=== PATIENT | male | born 1965 | race Caucasian/White ===

== ENCOUNTER 2016-07-22 17:46 | Emergency (ER) | payer MEDICAID ==
[~2016-07-22 17:46] MED LIST: BENAZEPRIL-HCT1 EACH PO; CERTAVITE SR-A1 EACH PO; CIALIS20 MG PO; DIVALPROEX SOD250 M1 PO; HUMALOG100 UNIT/1 SQ; HYDROCODON-ACE1 EAC6 PO; ISOSORBIDE MONO30 MG PO; LANTUS100 UNITS/ SQ; LIPITOR80 MG PO; LYRICA200 MG PO; NIASPAN500 MG PO; NITROSTAT0.4 MG SL; PAROXETINE HCL20 MG PO; PROVENTIL HFA6.7 GM IH; SLO NIACIN DPS500 MG PO; TRICOR145 MG PO; TYLENOL325 MG PO; VERAPAMIL ER240 M1 PO; VITAMIN D50000 UNIT PO; ZANTAC150 MG PO
--- NOTE | 2016-07-31 18:52 | ER ---
ADMIT: 07/22/2016 RM/LOC: ER [facility] MR#: [id number] [address] [address] ZAINA AGGARWAL [address] [place] [id number] Emergency Room Report SEX: M AGE: 50 : 1965 DATE: 07/22/2016 ADDENDUM: HISTORY OF PRESENT ILLNESS: This patient comes into the ER because early this evening, he started to feel dizzy and weak. He vomited 2 times, has had no diarrhea. He is coughing. Before, he was able to eat and drink normally. He is an insulin-dependent diabetic. PHYSICAL EXAMINATION: GENERAL: He is alert and oriented. HEENT: Posterior pharynx is dry. ABDOMEN: Soft, nontender to palpation. IV of normal saline was started. He was given a liter of bolus. He complains a lot of dizziness. He was given Valium 2 mg IV. He had no serum ketones in his blood and no ketones in his urine. Cardiac enzymes and CMP and lipase were normal. Chest x-ray also was negative. DIAGNOSES: 1. Dizziness. 2. Vomiting. 3. Weakness. Once the patient got fluids, we had him get up and walk around, he was able to without any difficulty and was quite improved. He is to follow up with his doctor tomorrow if not keeping fluids down. Please see my T-sheet. JULIO CESAR Castellanos / Rick Perera MD / roberto JOB #: [id number] CC: Rangel Mora MD, Attending Physician Dasha Johnson MD, Family Physician
[2016-08-22] MEDS ORDERED: GLUCOTROL DPS5 MG PO (11:36)
[2016-08-22] MEDS ORDERED: LANTUS100 UNITS/ SQ (11:37)
[2016-08-22] MEDS ORDERED: CYMBALTA30 MG PO ×2 (11:37)
[2016-08-22] MEDS ORDERED: VANCOMYCIN1 DOSE IV (11:38)
[2016-08-22] MEDS ORDERED: XANAX DPS1 MG PO (11:39)
[2016-08-22] MEDS ORDERED: AMBIEN DPS10 MG PO (11:40)
[2016-08-22] MEDS ORDERED: JANUVIA100 MG PO (11:41)
[2016-08-22] MEDS ORDERED: ASPIRIN EC81 MG PO (11:42)
[2016-08-22] MEDS ORDERED: PRILOSEC DPS20 MG PO (11:42)
[2016-12-02] MEDS ORDERED: PROAIR RESPICL90 MCG IH (08:45)
[2016-12-02] MEDS ORDERED: LEVAQUIN DPS500 MG PO (08:48)
== END 2016-07-22 21:45 | disposition home or self-care (01) ==
LOC: ER 17:46
DX: R42 Dizziness and giddiness (principal); R11.10 Vomiting, unspecified; R53.1 Weakness; I10 Essential (primary) hypertension; E11.9 Type 2 diabetes mellitus without complications; Z79.82 Long term (current) use of aspirin; Z79.4 Long term (current) use of insulin

== ENCOUNTER 2016-08-15 14:29 | Inpatient (IN) | payer MEDICAID ==
[~2016-08-15] VITALS: Ht 180.3 cm; Wt 126.4 kg
--- NOTE | ~2016-08-15 | WND ---
ADMIT: 08/15/2016 RM/LOC: 620 [facility] MR#: [id number] [address] [address] ED AGGARWAL [address] [place] [address] Wound Care Clinic SEX: M AGE: 50 : 1965 DATE OF VISIT: 08/18/2016 REASON FOR VISIT: Left toe ulcer. HISTORY OF PRESENT ILLNESS: Ed was seen in outpatient wound clinic on August 15, 2016 by myself for diabetic neuropathic ulcer to his left great toe. It was noted at that appointment that he had significant erythema and odor. He was also seen on August 13, 2016, at which time, I felt it would be appropriate to admit him for IV antibiotics. However, he did not want to go into the hospital, so I told him we would start with Augmentin and bring him back in 2 days and re-evaluate him. The 2-day followup was August 15. He had significant odor, increased drainage, and redness at which time, he was sent to the emergency room. He was admitted from the emergency room to the hospital on August 15, 2016. Staff has been doing Dakin's moistened gauze to the wound bed. He was recently seen by Dr. Ragsdale today. He is going to be taken to surgery tomorrow, August 19, 2016, by Dr. Ragsdale for incision and drainage of the wound with possible left great toe amputation. Ed is happy to tell me that his blood sugars many have been less than 100. He reports that he is feeling significantly better and is anxious to go home. He had an MRI of his left great toe yesterday; however, I am unable to pull up the results. PAST MEDICAL HISTORY: 1. Bipolar disorder, affective, current episode depressed, moderate. 2. Diabetes mellitus type 2. 3. Peripheral neuropathy. 4. Esophageal reflux without esophagitis. 5. Essential hypertension. 6. Hyperlipidemia. 7. Insomnia related to known axis factor. 8. Male erectile dysfunction due to disease classified elsewhere. 9. Multivessel coronary artery disease. 10.Renal insufficiency. 11.Chronic kidney disease, stage 3. ALLERGIES: No known medication allergies. CURRENT MEDICATIONS: 1. Alprazolam. 2. Aspirin. 3. Benazepril/hydrochlorothiazide. 4. Cymbalta. 5. Divalproex. 6. Glipizide. 7. Humalog. 8. Hydrocodone. 9. Acetaminophen 10/325. 10.Imdur. 11.Januvia. 12.Lantus. ADMIT: 08/15/2016 RM/LOC: 620 [facility] MR#: [id number] [address] [address] ED AGGARWAL [facility] [place] [address] Wound Care Clinic SEX: M AGE: 50 : 1965 13.Lipitor. 14.Lyrica. 15.Niaspan. 16.Nitrostat. 17.Prilosec. 18.Tricor. 19.Viagra. 20.Vitamin D. 21.Zolpidem. FAMILY HISTORY: His dad 50 years old of heart attack. His mother at 52 years old from bone cancer. He has a daughter with one of his 4 previous wives, who has diabetes. He has 2 sons and 1 other daughter. SOCIAL HISTORY: He is 4 times. He is currently living with his girlfriend for the past 10 years. Occupation; he delivers newspapers. He denies any tobacco, alcohol, or illicit drug use. 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 He has done time in [facility]. OBJECTIVE: Assessment of the left great toe reveals significantly improved erythema and less drainage. The plantar wound measures 0.6 cm in length x 0.6 cm in width. Wound bed is 100% pink. The lateral surface of the left great toe has a full-thickness wound that measures 0.5 cm in length x 0.8 cm in width. The wound bed is 100% yellow. ASSESSMENT: Diabetic neuropathic ulcer to the left great toe. PLAN: Staff will continue with the Dakin's moistened gauze to the wound bed and change daily until further directions are given to them status post incision and drainage by Dr. Gross on 08/19/2016. Wound Care will continue to follow. Yesica Hyman APRN/ roberto JOB #: [id number] CC: Dasha Johnson, Attending Physician aDsha Johnson, Family Physician
--- NOTE | 2016-08-18 07:52 | HP ---
ADMIT: 08/15/2016 RM/LOC: 620 [facility] MR#: [id number] ACC#: [id number] [address] [address] ED AGGARWAL [address] [place] [address] History and Physical SEX: M AGE: 50 : 1965 DATE OF SERVICE: CHIEF COMPLAINT: Pain in left foot. HISTORY OF PRESENT ILLNESS: Ed is a 50-year-old male with diabetes mellitus type 2. He was cared for in our office by Dr. Dasha Johnson. However, he has been having a problem with a sore on his left great toe, which did not heal for the last 2 months. He has been going to Wound Care, getting regular treatment. He has been on outpatient oral antibiotics. I believe, he has been on Keflex, Septra, and now is on Augmentin. Despite this treatment, he continues to have increasing swelling and discharge from his left great toe from the ulcers. He was seen in Wound Care today and they had recommended admission to the hospital for surgery and debridement. I asked them to send Ed over to the office, which they did do and Ed decide to come to the emergency room and stayed at the office. On evaluation in the emergency room, he has some cellulitis of his left great toe. Sepsis workup there was negative, but due to the degree of infection and not responding to oral antibiotics, we will go ahead and admit him to the hospital at this time for Surgical consult, prior needs some debridement. There was concern for possible osteomyelitis and need to amputate the toe and possibly the foot. We will get a podiatry consult. He does have diabetes mellitus type 2. He does not check his sugars regularly. When he does, they had been 250 to 350. He says he is not certain why sugars so high that he has not been eating anything. Denies any fever, chills, or sweats at home. No other symptoms other than the left great toe being painful and increased redness and tenderness this morning. PAST MEDICAL HISTORY: Diabetes mellitus type 2, insulin dependent, poorly controlled. He has nonobstructive coronary artery disease, on heart catheterization in 2012. Had a distal RCA lesion of 70%. Additionally, he has hypertension, hyperlipidemia, chronic kidney disease, chronic pain, and depression. ALLERGIES: NONE KNOWN. MEDICATIONS: Currently takes: 1. Lyrica 200 mg t.i.d. 2. Ambien 10 mg at bedtime. 3. Xanax 1 mg t.i.d. p.r.n. 4. Lantus 80 units subcu b.i.d. 5. Januvia 100 mg p.o. daily. 6. Lortab 10/325 one and a half tablet every 5 to 6 hours as needed for pain. 7. Recently on Augmentin 875/125 one tab b.i.d. with food. SOCIAL HISTORY: Significant other is present with him. They have been dating for several years. He is former smoker, quit in 2002. Denies any current ADMIT: 08/15/2016 RM/LOC: 620 [facility] MR#: [id number] [address] [place] [id number] ED AGGARWAL [facility] [place] [address] History and Physical SEX: M AGE: 50 : 1965 drug or alcohol use. He does have a prior history of drug abuse and alcohol abuse. FAMILY HISTORY: Father had heart attack in his 50s. Mother had heart attack at an older age, otherwise family history is noncontributory. REVIEW OF SYSTEMS: GENERAL: He states he has been doing well other than the foot problem. He does not check his sugars regularly. He denies any chest pain, pulmonary symptoms, or GI symptoms. He does have chronic osteoarthritis and chronic back pain. Looking back through his records, he had ulcerations on the same toe in 2014. PHYSICAL EXAMINATION: GENERAL: A 50-year-old male, appears older than stated age. He is alert and oriented x3. VITAL SIGNS: In the emergency room were stable. BP is 145/85, pulse 102, respiratory rate 17, O2 saturation 96% on room air, and temp is 98.2. HEENT: Eyes, PERRLA. EOMs intact. TMs not seen. Throat is moist, not inflamed. NECK: Supple. LUNGS: Clear to auscultation anteriorly. Respirations not labored. HEART: Regular rate. No murmur heard. ABDOMEN: Obese. No organomegaly or tenderness. /RECTAL: Deferred. EXTREMITIES: Has trace of edema in the lower extremities. Decreased peripheral pulses. The left great toe was erythematous with 2 ulcerations each about 0.75 cm in diameter and very deep all the way down into the subcutaneous tissue. The bridge between the two ulcerations is very necrotic. The redness and cellulitis extending up into the instep with some lymphangitic streaking. DIAGNOSTIC IMPRESSION: 1. Diabetic neuropathic foot with neuropathic ulcer with secondary gangrene ADMIT: 08/15/2016 RM/LOC: 620 [facility] MR#: [id number] [address] [place] [id number] ED AGGARWAL [address] [place] [address] History and Physical SEX: M AGE: 50 : 1965 and cellulitis, rule out osteomyelitis. 2. Diabetes mellitus type 2. 3. Morbid obesity. 4. Hypertension. 5. Coronary artery disease. 6. Chronic kidney disease. PLAN: The patient will be admitted to the hospital. Cultures have been obtained. Start him on IV Zosyn and vancomycin, which we will continue. Place him on sliding scale insulin. Continue with his home medications except hold the oral medications. We will obtain a Surgical consult with Dr. Ragsdale, order desk caller. Karlo Moody MD/ roberto JOB #: [id number] CC: Dasha Johnson, Attending Physician Dasha Johnson, Family Physician
--- NOTE | 2016-08-19 16:37 | CO ---
ADMIT: 08/15/2016 RM/LOC: 620 [facility] MR#: [id number] [address] [address] ZAINA AGGARWAL [address] [place] [address] Consultation SEX: M AGE: 50 : 1965 DATE OF CONSULTATION: 08/16/2016 ATTENDING PHYSICIAN: Dasha Johnson CONSULTING PHYSICIAN: Lee Ragsdale DPM CHIEF COMPLAINT: Left foot ulceration. HISTORY OF PRESENT ILLNESS: This patient is a 50-year-old poorly controlled diabetic male here today as an inpatient for cellulitis and ulceration of the left 1st digit. The patient describes having an ulceration for approximately 2 to 2-1/2 months after a callus and blister formed on the plantar surface of the digit. The patient has been seeing Wound Care and has had progressive worsening of the ulceration and was admitted through the emergency department. The patient has had increased swelling, redness, discharge, and pain at the left 1st digit. The patient also complains of constipation, but denies any nausea, vomiting, fever, or chills. PAST MEDICAL HISTORY: Diabetes type 2, coronary artery disease, hypertension, hyperlipidemia, chronic kidney disease, and depression. PAST SURGICAL HISTORY: Cardiac cath. ALLERGIES: NO KNOWN DRUG ALLERGIES. MEDICATIONS: Please see the list for current medications. FAMILY HISTORY: Noncontributory. SOCIAL HISTORY: Past drug and alcohol abuse. Former smoker. REVIEW OF SYSTEMS: Constipation. Negative for nausea or vomiting or fever or chills. PHYSICAL EXAMINATION: VITAL SIGNS: Temp 98.4, pulse is 112, respirations 21, blood pressure 122/65, and O2 is 92% on room air. PHYSICAL EXAMINATION: VASCULAR: DP and PT pulses are difficult to palpate. Edema is noted bilaterally, but is nonpitting. The patient does have left calf pain with palpation. Capillary refill time is approximately 4 to 5 seconds bilaterally. Absent hair growth to the digits bilaterally. NEUROLOGIC: Light touch sensation is absent to the feet bilaterally. DERMATOLOGIC: The patient has ulcerations of the left 1st digit at the interphalangeal joint plantarly measured 0.7 x 0.6 and has significant depth, which probes to the flexor tendon. The medial aspect measures 1.0 x 0.9 x 0.8 cm and has significant fibrotic tissue, serous drainage and does probe to bone. The ulcerations are not directly connected, but the tissue is quite soft in nature and would likely connective. Debridement was performed. The patient has erythema, which extends to the metatarsal neck of the 1st, 2nd, ADMIT: 08/15/2016 RM/LOC: 620 [facility] MR#: [id number] [address] [place] [phone] ZAINA AGGARW[place] [address] Consultation SEX: M AGE: 50 : 1965 and 3rd ray on the left. With increased warmth and swelling noted, no fluctuance identified, no direct sinus tract from the ulcerations. MUSCULOSKELETAL: Contracture digits bilaterally. Pain on palpation of the left calf and 1st digit on the left. No other acute musculoskeletal concerns noted today. LABORATORY DATA: Sodium 141, potassium 3.5, BUN is 16, and creatinine is 1.3. White count is 10, hemoglobin 13.9, hematocrit 40.5, and platelets 214. Procalcitonin is 0.37. Lactic acid is 1.0. Culture is mixed. RADIOLOGY: X-ray shows no definitive change within the bony cortex of the left first digit, but soft tissue edema is noted. ASSESSMENT: 1. Cellulitis. 2. Osteomyelitis. 3. Left foot ulceration. 4. Diabetes. 5. Peripheral vascular disease. 6. Peripheral neuropathy. PLAN: We will do some preoperative workup for this patient including an MRI to determine extent of the infection and any presence of an abscess or other concern. We will also obtain vascular studies to determine if there is any impediment in blood flow to the left extremity, which would change the surgical decision-making and also to help determine the patient's ability to heal. We will also obtain a venous ultrasound of the left leg to screen for DVT as he does have some left calf pain. For now, we will use Dakin's in a wet-to-dry manner to help control bacterial burden, this can be changed daily or as needed. The patient is to wear a supportive shoe or surgical shoe and avoid walking barefoot. We will consult secondary social studies teacher to help with discharge planning and nutritional services for diabetic education and recommendations for protein supplementation. We will continue to follow this patient until the studies are performed, and we will create a definitive plan with these. We will plan to take the patient to the operating room Thursday or Thursday for possible debridement versus amputation. The patient was educated about the possible diagnosis and treatment as well as a possible loss of the digit or part of the foot. His questions were answered in detail. We will discuss this with him further before surgery is planned. Lee Ragsdale DPM/ roberto JOB #: [id number] CC: Dasha Johnson, Attending Physician Dasha Johnson, Family Physician
--- NOTE | 2016-08-21 08:44 | ER ---
ADMIT: 08/15/2016 RM/LOC: 620 [facility] MR#: [id number] [address] [address] ZAINA AGGARWAL [address] [place] [address] Emergency Room Report SEX: M AGE: 50 : 1965 DATE: 08/15/2016 TIME: 1429 hours. Please refer to my T-sheet for complete H and P. Briefly, the patient is a 50-year-old who has the unfortunate history of left great toe ulcer. They have been working to wound care. He has been on long antibiotics, been there long-standing, but it is getting worse, not getting better. Wound Care sent him over for evaluation. He does not control his sugars very well. He says he has been having the chills. PHYSICAL EXAMINATION: VITAL SIGNS: His blood pressure is 140/85, pulse 103, respirations 18, temp 98.8, and sat 95%. GENERAL: He is no acute distress. HEENT: Grossly normal. LUNGS: Clear. HEART: Regular. ABDOMEN: Soft. EXTREMITIES: Left great toe has some large ulcers on the bottom of it. He had erythema and redness up to his mid foot. It is tender and swollen. EMERGENCY DEPARTMENT COURSE: We did a sepsis workup here. CBC was essentially normal. Chemistries normal except glucose 346 and creatinine 1.6. Cardiac enzymes negative. UA showed 4+ glucose. Blood cultures x2 were sent. His lactate was 1. We gave him normal saline bolus, Zofran. Titrated morphine. Started vancomycin and Zosyn. I talked to his primary, will admit to the hospital. ASSESSMENT: 1. Left foot great toe diabetic ulcer. 2. Left foot cellulitis, failed outpatient therapy. 3. Diabetes, poorly controlled. PLAN: Admit to the hospital. Josh Ricketts MD/ roberto JORDAN: 08/15/2016 16:32:13 JOB #: [id number] CC: Dasha Johnson MD, Attending Physician Dasha Johnson MD, Family Physician
--- NOTE | 2016-08-22 06:44 | DS ---
ADMIT: 08/15/2016 RM/LOC: 620 [facility] MR#: [id number] [address] [address] JASEN EBONYSONJA Valles [address] [place] [address] Discharge Summary SEX: M AGE: 50 : 1965 ADMISSION DATE: 08/15/2016 DISCHARGE DATE: 08/21/2016 FINAL DIAGNOSES: 1. Diabetic foot ulcer with osteomyelitis in the left great toe. 2. Type 2 diabetes, uncontrolled. 3. Diabetic peripheral neuropathy. 4. Hypertension. 5. Hyperlipidemia. 6. Diabetic neuropathic pain. HISTORY: Ed was admitted with worsening cellulitis and had evaluation by Podiatry including MRI scan, which confirmed osteomyelitis around the first digit of the left foot. He had arterial vascular studies, which showed no significant obstruction. Dr. Ragsdale performed left great toe amputation on 08/19/2016. The patient did very well with surgery. Blood cultures were negative during the hospital stay. Wound cultures showed multiple mixed gram-positive organisms and there were also some anaerobes growing, but have not been completely identified. Laboratory states with the mixed organism in the field that sensitivities cannot be performed. In any case, by 08/21/2016, he is getting along well with minimal pain at rest. He knows that he cannot be weightbearing on the left foot. He has been using a walker and has been getting up to the bathroom on his own. He will go home where his significant other, Veronica, will ensure that he gets back and forth to the hospital for IV antibiotic treatments. We spent time going over blood sugars and appropriate diet. He freely admits that he was not watching what he ate at home whatsoever. He said he was eating large amounts of things like tortillas and cornbread at home. Ed has limited finances and limited access to different foods, but both he and his significant other said they can "make things work." He is going to stop drinking soda and he was drinking anywhere from 12-24 cans per day so can shift that money to buy better food, which we talked about at length. Medicines on dismissal are: 1. Ambien 10 mg at bedtime. 2. Aspirin 81 mg daily. 3. Cymbalta 60 mg in the morning and 30 mg at night. 4. Glucotrol 5 mg t.i.d. 5. Januvia 100 mg daily. 6. Lipitor 40 mg at bedtime. 7. Lotensin 01/22.5, one daily. 8. Lyrica 200 mg t.i.d. 9. Omeprazole 40 mg daily. 10.TriCor 145 mg daily. 11.Vitamin D 50,000 units weekly. ADMIT: 08/15/2016 RM/LOC: 620 [facility] MR#: [id number] [address] [address] ZAINA AGGARWAL [facility] [place] [address] Discharge Summary SEX: M AGE: 50 : 1965 12.He will use Lantus insulin 50 unit subq every morning and 70 units subq every evening, and I can adjust that with him depending on how his sugars do. 13.He will also use Humalog sliding scale according to the following regimen: If sugars are 150-200, he will use 2 units; if 201-250, he will use 4 units; if 251-300, he will use 6 units; if 301-350, he will use 8 units; and if over 350, he will use 10 units. He knows to drink no soda or other sugary drinks. 14.He will also need to come to the hospital for vancomycin 1.5 g IV q.12 hours for the next three to four weeks depending on his healing. We will place a midline IV prior to dismissal to facilitate that antibiotic. The patient voiced understanding and said he would be able to get back and forth. At home, he has a walker, shower chair, and also a scooter to get around and keep his foot off the ground and avoid weightbearing. Dasha Johnson MD/ marcia JOB #: [id number] CC: Dasha Johnson MD, Attending Physician Dasha Johnson MD, Family Physician
[2016-08-22] MEDS ORDERED: GLUCOTROL DPS5 MG PO (11:36)
[2016-08-22] MEDS ORDERED: CYMBALTA30 MG PO ×2 (11:37)
[2016-08-22] MEDS ORDERED: LANTUS100 UNITS/ SQ (11:37)
[2016-08-22] MEDS ORDERED: VANCOMYCIN1 DOSE IV (11:38)
[2016-08-22] MEDS ORDERED: XANAX DPS1 MG PO (11:39)
[2016-08-22] MEDS ORDERED: AMBIEN DPS10 MG PO (11:40)
[2016-08-22] MEDS ORDERED: JANUVIA100 MG PO (11:41)
[2016-08-22] MEDS ORDERED: PRILOSEC DPS20 MG PO (11:42)
[2016-08-22] MEDS ORDERED: ASPIRIN EC81 MG PO (11:42)
--- NOTE | 2016-08-29 11:55 | OR ---
ADMIT: 08/15/2016 RM/LOC: 620 [facility] MR#: [id number] [address] [address] EBONY AGGARWALSONJA Hai [address] [place] [address] Operative/Delivery Room Report SEX: M AGE: 50 : 1965 SURGERY DATE: 08/19/2016 SURGEON: Lee Ragsdale DPM ORTHOPAEDIC NURSE: None. PREOPERATIVE DIAGNOSIS: Osteomyelitis, left foot, 1st digit. POSTOPERATIVE DIAGNOSIS: Osteomyelitis, left foot, 1st digit. PROCEDURE: Amputation, left foot, 1st digit. ANESTHESIA: MAC with local. COMPLICATIONS: None. SPECIMENS: Toe for culture and pathology. ESTIMATED BLOOD LOSS: Less than 5 mL. FLUID REPLACEMENT: As per Anesthesia. HEMOSTASIS: Pneumatic ankle tourniquet at 250 mmHg. INJECTIONS: 10 mL of 2% lidocaine plain. MATERIALS: 4-0 Vicryl, 2-0 nylon. PREOPERATIVE STATEMENT: This patient was recently admitted for ulceration, cellulitis, and osteomyelitis of the left foot 1st digit. The patient has been started on IV antibiotics, and an MRI confirmed the presence of osteomyelitis. It was determined at this time that surgical intervention was necessary to reduce the risk of overwhelming infection and further loss of limb or life. The patient was seen in the preoperative area. The consent was reviewed with the patient including the risks and benefits of the procedure. The patient's questions were answered in detail, and the consent was noted to be signed and placed on the chart. The H and P is up-to-date. The labs, EKGs, and x-rays were reviewed, and there were no contraindications to surgery at this time. OPERATIVE REPORT: This patient was brought back to the operating room under light sedation, placed on operating table in the supine position. A well- padded ankle tourniquet was placed about the patient's left ankle. The time- out was performed. The site marking was noted when all in agreement. The foot was prepped and draped in a normal aseptic technique and the procedure was underway. Using a tennis racket style incision over the dorsal aspect of the 1st digit of the left foot, the skin was incised and dissection was carried down to the ADMIT: 08/15/2016 RM/LOC: 620 [facility] MR#: [id number] [address] [address] ZAINA AGGARWAL [address] [place] [address] Operative/Delivery Room Report SEX: M AGE: 50 : 1965 level of the 1st metatarsophalangeal joint. Once at this level, the joint was exposed with incision of the joint capsule. The digit was then disarticulated from the 1st metatarsophalangeal joint and the remaining soft tissue attachments were removed. MRI did not show sign of infection within the sesamoid apparatus and this was left intact. The site was then irrigated with 3 L of saline and bacitracin using a pulse lavage. After irrigation, the site was inspected for any remaining nonviable tissue, and there was noted to be none. The areas of ulceration were excised from the remaining flap. After excision, the flap was contoured and shaped to allow closure, which was somewhat difficult at the medial aspect due to soft tissue loss. Once the soft tissue was reapproximated, the dressing was applied using a Xeroform gauze with an Wing wrap. The patient was transferred to the recovery room with his vital signs stable and neurovascularly intact. The patient is to be nonweightbearing on the left foot. He is to continue to receive IV antibiotics. We will hopefully pre-certify him for hyperbarics after his discharge. We will continue to see him as an inpatient, will likely be discharged on IV antibiotics for 2 to 4 weeks. Lee Ragsdale DPM/ roberto JOB #: [id number] CC: Dasha Johnson, Attending Physician Dasha Johnson, Family Physician
[2016-12-02] MEDS ORDERED: PROAIR RESPICL90 MCG IH (08:45)
[2016-12-02] MEDS ORDERED: LEVAQUIN DPS500 MG PO (08:48)
== END 2016-08-21 20:35 | disposition home or self-care (01) | DRG 617 ==
LOC: ER 14:29 → 6PED 17:00
PROVIDERS: ADMIT Family Medicine
PROC: 0Y6Q0Z0 Detachment at Left 1st Toe, Complete, Open Approach (ICD-10-PCS; principal; 2016-08-19)
DX: E11.69 Type 2 diabetes mellitus with other specified complication (principal); M86.672 Other chronic osteomyelitis, left ankle and foot; E11.22 Type 2 diabetes mellitus with diabetic chronic kidney disease; L03.116 Cellulitis of left lower limb; E66.01 Morbid (severe) obesity due to excess calories; E11.65 Type 2 diabetes mellitus with hyperglycemia; L03.032 Cellulitis of left toe; I25.10 Atherosclerotic heart disease of native coronary artery without angina pectoris; M19.90 Unspecified osteoarthritis, unspecified site; E11.42 Type 2 diabetes mellitus with diabetic polyneuropathy; I73.9 Peripheral vascular disease, unspecified; I12.9 Hypertensive chronic kidney disease with stage 1 through stage 4 chronic kidney disease, or unspecified chronic kidney disease; N18.9 Chronic kidney disease, unspecified; E78.5 Hyperlipidemia, unspecified; G89.29 Other chronic pain; F32.9 Major depressive disorder, single episode, unspecified; Z79.4 Long term (current) use of insulin; Z82.49 Family history of ischemic heart disease and other diseases of the circulatory system; Z98.61 Coronary angioplasty status; Z87.891 Personal history of nicotine dependence; Z68.38 Body mass index [BMI] 38.0-38.9, adult

== ENCOUNTER 2016-09-16 17:08 | Emergency (ER) | payer MEDICAID ==
[~2016-09-16 17:08] MED LIST changes: +AMBIEN DPS10 MG PO; +ASPIRIN EC81 MG PO; +CYMBALTA30 MG PO; +GLUCOTROL DPS5 MG PO; +JANUVIA100 MG PO; +PRILOSEC DPS20 MG PO; +VANCOMYCIN1 DOSE IV; +XANAX DPS1 MG PO
--- NOTE | 2016-09-20 13:04 | ER ---
ADMIT: 09/16/2016 RM/LOC: ER [facility] MR#: [id number] [address] [address] ZAINA AGGARWAL [address] [place] [address] Emergency Room Report SEX: M AGE: 50 : 1965 DATE: 09/16/2016 CHIEF COMPLAINT: Abdominal pain. HISTORY OF PRESENT ILLNESS: A 50-year-old, white male, who presents with 2 days' duration of worsening abdominal pain and left lower leg pain. States he had his greater toe on the left foot amputated on August 19. This was performed by Dr. Ragsdale, community director. He encouraged them to present to the ED with any worsening pains up the leg or abdominal pain. Presents today with 9/10 stabbing periumbilical pain, nausea, and diarrhea. Denies any fever, chills, vomiting, or loss of appetite. The pain is worse with movement. He is currently receiving outpatient IV vancomycin for treatment of his lower extremity amputation. Denies any purulent drainage or concerning signs of infection about the amputation site. PAST MEDICAL HISTORY: Diabetes on insulin, hypertension, and chronic kidney disease. COURSE IN THE EMERGENCY ROOM: The patient was seen and examined. PHYSICAL EXAMINATION: GENERAL: He is afebrile and nontoxic. He is in a mild amount of distress. CHEST: Nontender. Breath sounds equal bilaterally. HEART: Regular. ABDOMEN: Soft. He does have periumbilical tenderness. No McBurney point tenderness. SKIN: Warm and dry. EXTREMITIES: He is status post amputation of the left great toe. There is no erythema, warmth, or drainage from the incision site. There is no streaking red up the leg. LABORATORY DATA: White count 6.8, hemoglobin 14.1, hematocrit 39.9, and platelets 213. Sodium 137, potassium 4.0, BUN 23, glucose 306, creatinine 1.7, lipase 226, AST 21, and ALT 34. KUB shows nonspecific gas pattern, no signs of acute obstruction. While in the department, I did give him Zofran 4 mg IV through his PICC line as well as Reglan 10 mg IV and Ativan 1. I did have a long discussion with them as they were concerned that there is a blister on his foot that was gangrenous. I reassured them that did not look ADMIT: 09/16/2016 RM/LOC: [facility] MR#: [id number] [address] [address] ZAINA AGGARWAL [address] [place] [address] Emergency Room Report SEX: M AGE: 50 : 1965 infected at this time. He states he is feeling better. IMPRESSION: 1. Abdominal pain. 2. Nausea, vomiting, and diarrhea. DISPOSITION: The patient was discharged home to increase fluids. Continue home medications. Return with worsening signs or symptoms. Tylenol as needed for pain. Return home and rest. He is scheduled to see Dr. Johnson tomorrow. I encouraged him to follow up with her as scheduled tomorrow. Questions sought and answered to the best of my ability and to the patient's satisfaction. Discharged in stable condition. JULIO CESAR Anthony / Rick Perera MD / roberto JOB #: [id number] CC: Niraj Weber MD, Attending Physician Dasha Johnson MD, Family Physician
[2016-12-02] MEDS ORDERED: PROAIR RESPICL90 MCG IH (08:45)
[2016-12-02] MEDS ORDERED: LEVAQUIN DPS500 MG PO (08:48)
== END 2016-09-16 20:15 | disposition home or self-care (01) ==
LOC: ER 17:08
DX: R10.84 Generalized abdominal pain (principal); R11.2 Nausea with vomiting, unspecified; R19.7 Diarrhea, unspecified; R10.33 Periumbilical pain; E11.9 Type 2 diabetes mellitus without complications; I12.9 Hypertensive chronic kidney disease with stage 1 through stage 4 chronic kidney disease, or unspecified chronic kidney disease; N18.9 Chronic kidney disease, unspecified; F32.9 Major depressive disorder, single episode, unspecified; Z89.412 Acquired absence of left great toe; Z79.4 Long term (current) use of insulin; Z79.84 Long term (current) use of oral hypoglycemic drugs; Z79.82 Long term (current) use of aspirin; Z79.899 Other long term (current) drug therapy

== ENCOUNTER 2016-09-17 09:33 | Observation (INO) | payer MEDICAID ==
[~2016-09-17] VITALS: Ht 180.3 cm; Wt 122.1 kg
--- NOTE | 2016-09-18 07:38 | HP ---
ADMIT: 09/17/2016 RM/LOC: 407 [facility] MR#: [id number] [address] [address] ZAINA AGGARWAL [address] [place], [place] [address] History and Physical SEX: M AGE: 50 : 1965 DATE OF SERVICE: CHIEF COMPLAINT: Stomach pain and vomiting with comorbidity of current osteomyelitis. HISTORY OF PRESENT ILLNESS: Ed was admitted to the hospital in August 2016 with osteomyelitis and eventually had amputation of the left great toe. Surgery was on August 19. He has been coming in for outpatient vancomycin IV antibiotic since that time, and his last scheduled dose is September 19. However on September 15, he started to feel nauseated and vomited. On the , he went to the emergency room and was given some IV fluids, Zofran, and Reglan, treated for presumed gastroenteritis. He said he felt better a few hours and then when he went home and tried to drink, he started vomiting again. He said today he cannot even keep water down. He is not aware of fevers, but says he feels chills and "terrible." He said he feels tired and nauseated. He has been taking his routine medicines including his insulin. Denies any hypoglycemia. He has poorly controlled diabetes type 2. PAST MEDICAL HISTORY: 1. Diabetes type 2 with poor control historically. 2. Nonobstructive coronary artery disease with known distal RCA lesion with last heart catheterization in 2012. 3. Hypertension. 4. Hyperlipidemia. 5. Chronic kidney disease, stage 3. 6. Chronic pain. 7. Diabetic neuropathy in the extremities. 8. Chronic depression. ALLERGIES: NONE KNOWN. SOCIAL HISTORY: Ed lives with his significant other, Veronica. He is a former smoker, about 40 pack-year history. He has a prior history of drug abuse and alcohol abuse, but has been sober for greater than 10 years. FAMILY HISTORY: His father had heart disease and heart attack in his 50s. He was also diabetic and has legs amputated. Mother had a heart attack when she was in her 60s. REVIEW OF SYSTEMS: GENERAL: He said he was feeling well until the last 48 hours when he started to have nausea and now feels very tired. Denies fever or chills, but has not been checking his temperature. ENT: He has partial dentures. Denies any sores in his mouth. Denies sore throat. No runny nose. CARDIOPULMONARY: Benign. He denies chest pain. No cough. No shortness of breath. GASTROINTESTINAL: Positive for vomiting. He denies any hematemesis. Also, ADMIT: 09/17/2016 RM/LOC: 407 [facility] MR#: [id number] [address] [address] ZAINA AGGARWAL [facility] [place] [address] History and Physical SEX: M AGE: 50 : 1965 denies dark stools or constipation or diarrhea. GENITOURINARY: No dysuria. Denies any increased urination, but he says he typically gets up 2 or 3 times a night and that has been chronic. MUSCULOSKELETAL: Positive for lower extremity pain. Pain goes from at least his knees all way down to his feet and that has been chronic. He is having more burning pain across the top of his left foot recently. SKIN AND INTEGUMENT: Positive for healing amputation site on the left great toe area, and he also has a new blister on the side of his left foot that has been getting a little darker and wider. It has not drained. PHYSICAL EXAMINATION: VITAL SIGNS: Blood pressure is 130s/80s in the clinic. He was afebrile, tachycardic about 100. Oxygenation 98% on room air. GENERAL: Ed looks older than his stated age. He looks fatigued. He is alert and oriented x3. HEENT: He has no scleral icterus. No jaundice. Mucous membranes are dry. He did not have his partial teeth in. Tongue extends in the midline. He has good carotid upstroke bilaterally in the neck. No thyromegaly. LUNGS: Clear. HEART: Regular. There is no heave or rub. ABDOMEN: Belly is soft. He has no focal tenderness, but his entire abdomen has some diffuse tenderness throughout. Bowel sounds are present and hyperactive. EXTREMITIES: With multiple tattoos. He has a midline IV in the right upper arm, just a little bit of redness near the insertion site, but no streaks past that. Lower extremities with no edema around the legs, but he has a little bit of swelling across the dorsum of the left foot. He has a healing incision site from the left great toe amputation. There is no drainage. There is also a blood blister on the lateral side of the left foot near the MCP joint. There is no obvious ulceration there. Pulses difficult to feel on both feet and that is chronic. His skin on the legs is warm and dry. LABORATORY AND X-RAY DATA: Chest x-ray is clear. His lactic acid is 3.1. Electrolytes are normal. Creatinine is 1.7, which is baseline for him. Glucose was 281 on admission. Calcium 8.7. Liver function studies were normal. CRP is slightly elevated at 0.3. White count 6.7, hemoglobin 13.9, hematocrit 39.1, and platelet count 209. ASSESSMENT: 1. Gastroenteritis. 2. Chronic osteomyelitis with worsening fatigue and other symptoms concerning for early sepsis. 3. Diabetes type 2, uncontrolled with complications including diabetic nephropathy and diabetic peripheral neuropathy. 4. Chronic kidney disease, stage 3 secondary to diabetic nephropathy. 5. Hypertension, chronic. 6. Hyperlipidemia. 7. Coronary artery disease, stable. 8. Depression with anxiety. ADMIT: 09/17/2016 RM/LOC: 407 [facility] MR#: [id number] [address] [address] ZAINA AGGARWAL [facility] [place] [address] History and Physical SEX: M AGE: 50 : 1965 9. Chronic osteomyelitis. PLAN: He will be admitted, started on IV fluids, and I will do sepsis workup with laboratory. I did not initially start antibiotics, but I will ask Dr. Beckman to weigh in on that. He has been on vancomycin as an outpatient, just had an infusion about an hour before I saw him in the office. Depending on lab findings, I will decide on further bolus, but originally, I will give him 1 L of fluids and then run normal saline at 125 an hour. We will start out by giving him just clear liquids to eat and see how he tolerates that and advance as tolerated to an ADA diet. Otherwise, I will continue his usual medicines. Dasha Johnson MD/ roberto JOB #: [id number] CC: Dasha Johnson, Attending Physician Dasha Johnson, Family Physician
--- NOTE | 2016-09-18 11:18 | CO ---
ADMIT: 09/17/2016 RM/LOC: 407 [facility] MR#: [id number] [address] [address] ZAINA AGGARWAL [address] [place] [address] Consultation SEX: M AGE: 50 : 1965 DATE OF CONSULTATION: 09/17/2016 ATTENDING PHYSICIAN: Dasha Johnson CONSULTING PHYSICIAN: Susan Beckman MD REASON FOR CONSULTATION: Antibiotic management. Thank you, Dr. Johnson, for the consult and involving me in this patient's care. HISTORY OF PRESENT ILLNESS: Mr. Aggarwal is a 50-year-old man with history of diabetes mellitus, who presented to the ER yesterday with worsening abdominal pain since the last 2 days and left foot pain. He underwent a left 1st digit amputation on 08/19/2016 for osteomyelitis. Subsequently, he was discharged on IV vancomycin, which he received for around 4 weeks through right arm midline. He also reports diarrhea since last 2 days and had 2 bowel movements which described as watery in consistency. He denied any fever or chills at home and had occasional vomiting. An abdominal x-ray was done yesterday which did not show any evidence of bowel obstruction and hence he was discharged. He was seen today by Dr. Johnson in the office, and he says he felt terrible and had worsening vomiting, hence admitted to the hospital for further management. At present, he complains of abdominal pain and left foot pain. PAST MEDICAL HISTORY: 1. Type 2 diabetes mellitus, poorly controlled. 2. Left foot osteomyelitis, status post 1st digit amputation. 3. Hypertension. 4. Chronic kidney disease, stage 3. 5. Bipolar disorder. 6. Peripheral neuropathy. 7. Gastroesophageal reflux disease. 8. Hyperlipidemia. 9. Insomnia. 10.Erectile dysfunction. 11.Coronary artery disease. ALLERGIES: NO KNOWN DRUG ALLERGIES. CURRENT MEDICATIONS: Reviewed. FAMILY HISTORY: Significant for heart disease in his father. Bone cancer in his mother. SOCIAL HISTORY: He is four times, currently lives with his girlfriend. Denies any smoking, alcohol, or recreational drug use. He did do recreational drugs, mainly methamphetamine in the past. REVIEW OF SYSTEMS: A 10-point review of systems negative except as mentioned ADMIT: 09/17/2016 RM/LOC: 407 [facility] MR#: [id number] [address] [address] ZAINA AGGARWAL [address] [place] [address] Consultation SEX: M AGE: 50 : 1965 in HPI. PHYSICAL EXAMINATION: VITAL SIGNS: Current temperature 98.2, heart rate 99, respirations 18, blood pressure 133/106, and 90% on room air. GENERAL: No acute distress. HEENT: Head is normocephalic and atraumatic. Extraocular movements intact. CHEST: Decreased breath sounds bilaterally. No wheezes, rales, or rhonchi. CARDIOVASCULAR: S1 and S2 heard. Regular rate and rhythm. ABDOMEN: Soft, obese, and nontender. Active bowel sounds. MUSCULOSKELETAL: The left great toe amputation site looks clean. There is mild surrounding erythema and mildly increased warmth. There is deep tissue injury on the lateral surface of the left foot which is tender to palpation and mildly increased warmth. There is no drainage noted. PSYCH: Normal affect. Memory intact. DATA REVIEW: Per HPI. ASSESSMENT AND PLAN: 1. Left foot mild cellulitis. 2. Left lateral foot deep tissue injury. 3. Diarrhea. 4. Abdominal pain. 5. Diabetes mellitus. 6. Chronic kidney disease. 7. History of recreational drug use. PLAN: At this time, I will check a stool for Clostridium difficile PCR. We will draw blood cultures x2. I will start him on ampicillin/sulbactam 3 g every 6 hours for the cellulitis. If Clostridium difficile PCR comes back positive, then we will change his antibiotics accordingly. His right arm PICC line looks red, hence recommend discontinuing it. His abdominal pain is likely secondary to enteritis and if it worsens, then recommend doing CT of abdomen and pelvis. Given his history of recreational drug use, I will check an HIV, hepatitis C, and hepatitis B surface antigen. Thank you for the consult. I will continue to follow the patient. Susan Beckman MD/ roberto JOB #: [id number] CC: Dasha Johnson, Attending Physician Dasha Johnson, Family Physician
[2016-09-19] MEDS ORDERED: VITAMIN D50000 UNIT PO (17:12)
[2016-09-19] MEDS ORDERED: PRILOSEC DPS20 MG PO (17:12)
[2016-09-19] MEDS ORDERED: FENOFIBRATE145 MG PO (17:13)
[2016-09-19] MEDS ORDERED: AMBIEN DPS10 MG PO (17:13)
[2016-09-19] MEDS ORDERED: ATORVASTATIN CA40 MG PO (17:13)
[2016-09-19] MEDS ORDERED: JANUVIA100 MG PO (17:13)
[2016-09-19] MEDS ORDERED: XANAX DPS1 MG PO (17:14)
[2016-09-19] MEDS ORDERED: ASA CHILDREN'S81 MG PO (17:14)
[2016-09-19] MEDS ORDERED: LYRICA200 MG PO (17:14)
[2016-09-19] MEDS ORDERED: LANTUS100 UNITS/ SQ ×2 (17:14→17:49)
[2016-09-19] MEDS ORDERED: CYMBALTA30 MG PO ×2 (17:15)
[2016-09-19] MEDS ORDERED: NORCO 10-325 T1 EACH PO (17:16)
[2016-09-19] MEDS ORDERED: LOTENSIN10 MG PO (17:16)
[2016-09-19] MEDS ORDERED: TYLENOL DPS325 MG PO (17:18)
[2016-09-19] MEDS ORDERED: HUMALOG100 UNIT/1 SQ (17:18)
[2016-09-19] MEDS ORDERED: MAALOX DPS30 ML PO (17:18)
[2016-09-19] MEDS ORDERED: AUGMENTIN 875-1 EACH PO (17:47)
--- NOTE | 2016-09-21 12:09 | DS ---
ADMIT: 09/17/2016 RM/LOC: 407 [facility] MR#: [id number] [address] [address] ED AGGARWAL [address] [place] [address] Discharge Summary SEX: M AGE: 50 : 1965 ADMISSION DATE: 09/17/2016 DISCHARGE DATE: 09/19/2016 FINAL DIAGNOSES: 1. Gastroenteritis with secondary dehydration. 2. Cellulitis of the left foot. 3. Osteomyelitis of left toe with recent toe amputation. 4. Diabetes, type 2, uncontrolled. 5. Diabetic neuropathy. 6. Chronic kidney disease, stage III. HOSPITAL COURSE: The patient was admitted because he had had two to three days of vomiting at home and could not keep anything down including all of his medicines. He is diabetic and uses insulin. He also has been getting outpatient vancomycin for a left foot cellulitis and osteomyelitis. He was supposed to complete that September 19. In any case, he was admitted and I asked Dr. Beckman to see him. She started him on Unasyn IV. He had sepsis workup including lactic acid, procalcitonin, blood cultures, CMP, CBC, and a chest x- ray. Blood pressure was normal. He did not run a fever. He did not meet sepsis criteria. The initial lactic acid was 3.1, but then that came down. Blood cultures have remained negative. He also had other lab work ordered by Infectious Disease including hepatitis panel, which was negative. Dr. Ragsdale with Podiatry also saw him and recommended Betadine to the left foot on a daily basis. The patient has a blister with a deep tissue injury on the lateral side of the left foot, but no evidence of ulcer on that side. By day three, he was feeling much better. He was taking oral intake very well and had good urine output and good bowel movements. Laboratory was stable with a creatinine that had come down to 1.5 from the initial 1.7. He remained afebrile. Blood pressures remained stable. He will be dismissed home. He will follow up in wound clinic in a week per Dr. Beckman. He will see Podiatry in about two weeks, which is already set up. He will follow up with me also in about 10-14 days and I will recheck CBC and BMP at that ADMIT: 09/17/2016 RM/LOC: 407 [facility] MR#: [id number] [address] [address] ED AGGARWAL Hai [address] [place] [address] Discharge Summary SEX: M AGE: 50 : 1965 appointment. Medications are his usual home meds plus: 1. Augmentin 875 mg b.i.d. taken through and including 09/23/2016. 2. He will not need to do the outpatient vancomycin any longer. Ed will also continue his own insulin at home, which is Lantus 70 units at night and he follows a sliding scale which includes checking his sugar before meals. If sugar is 150-200, he uses 2 units of Humalog. If 201-250, he uses 4 units. If 251-300, he uses 6 units. If 301-350, he uses 8 units. If over 350, he uses 10 units. If his sugars are running over 400, he is to call the doctor. He can weightbear as tolerated and he is to wear shoes at all times for protection of his foot. Dasha Johnson MD/ marcia JOB #: [id number] CC: Dasha Johnson MD, Attending Physician Dasha Johnson MD, Family Physician
--- NOTE | 2016-09-25 13:25 | CO ---
ADMIT: 09/17/2016 RM/LOC: 407 [facility] MR#: [id number] [address] [address] ZAINA AGGARWAL [address] [place] [address] Consultation SEX: M AGE: 50 : 1965 DATE OF CONSULTATION: 09/17/2016 ATTENDING PHYSICIAN: Dasha Johnson CONSULTING PHYSICIAN: Lee Ragsdale DPM CHIEF COMPLAINT: Abdominal pain and left foot blister. HISTORY OF PRESENT ILLNESS: This is a diabetic male, who was admitted by the Primary Service for abdominal pain. The patient recently underwent a left foot first digit amputation for gangrene and has since developed a deep tissue injury to the left fifth metatarsophalangeal joint. I have been following the patient as an outpatient for management of this and he has had some slight increased size of the discoloration of the left foot fifth digit. The patient is with his spouse today at today's visit. The patient has had severe abdominal pain, which has gotten worse and was subsequently admitted. PAST MEDICAL HISTORY: Diabetes type 2, coronary artery disease, hypertension, hyperlipidemia, chronic kidney disease, depression, peripheral neuropathy, and peripheral vascular disease. PAST SURGICAL HISTORY: Cardiac cath and left first digit toe amputation. ALLERGIES: NO KNOWN DRUG ALLERGIES. MEDICATIONS: Please see list for current medications. FAMILY HISTORY: Noncontributory. SOCIAL HISTORY: Past drug and alcohol abuse. Former tobacco use. REVIEW OF SYSTEMS: Negative except for stated above. Negative for nausea, vomiting, or chills. PHYSICAL EXAMINATION: VITAL SIGNS: Temp 98.2, pulse is 81, respirations 18, blood pressure is 128/81, and O2 is 97% on room air. VASCULAR: DP and PT pulses are faintly palpable bilaterally. Absent hair growth bilaterally. Capillary refill time is approximately 4 seconds bilaterally. NEURO: Light touch sensation is absent to the digits bilaterally. DERM: The patient's incision line at the left foot first digit is well-healed and well-approximated with some moderate edema. The left foot fifth metatarsophalangeal joint has a deep tissue injury, which measures approximately 1 cm in diameter, but shows no full-thickness ulceration or skin breakdown. There is some slight amount of blood staining that appears old and no surrounding erythema or increased warmth. MUSCULOSKELETAL: The patient has amputation of the left foot first digit. No pain with palpation of the first digit amputation site with some slight pain with palpation of the left fifth metatarsophalangeal joint. ADMIT: 09/17/2016 RM/LOC: 407 [facility] MR#: [id number] [address] [address] ZAINA AGGARWAL [facility] [place] [address] Consultation SEX: M AGE: 50 : 1965 LABORATORY DATA: Hepatitis B and C is negative. Procalcitonin is 0.07. ESR is 33. Sodium is 138, potassium 3.9, BUN is 20, and creatinine is 1.7. Blood culture shows no growth. HIV is negative. Lactic acid is 3.1. White count is 6.7, hemoglobin is 13.9, hematocrit is 39.1, and platelets are 209. IMAGING: Abdominal radiology shows no obvious bowel obstruction. ASSESSMENT: 1. Deep tissue injury to the left foot fifth metatarsophalangeal joint. 2. Status post left foot first digit amputation. 3. Diabetes. 4. Peripheral vascular disease. 5. Peripheral neuropathy. 6. Abdominal pain. PLAN: We will have the patient paint the blister with Betadine daily to control any bacterial contamination of the blister was left intact and we will allow to demarcate. The patient is to be weightbearing in a shoe, but the patient does not have his accommodative shoe yet. Would prefer shoe that does not rub at the fifth metatarsophalangeal joint. We will have him follow up as an outpatient as previously scheduled. Infectious Disease is following. We will sign off for now and I would encourage to call if needed. Lee Ragsdale DPM/ roberto JOB #: [id number] CC: Dasha Johnson, Attending Physician Dasha Johnson, Family Physician
[2016-12-02] MEDS ORDERED: PROAIR RESPICL90 MCG IH (08:45)
[2016-12-02] MEDS ORDERED: LEVAQUIN DPS500 MG PO (08:48)
== END 2016-09-19 13:55 | disposition home or self-care (01) ==
LOC: 6PED 09:33 → 4PCU 09:33 → 6PED 09:33 → 4PCU 15:47
PROVIDERS: ADMIT Family Medicine
DX: K52.9 Noninfective gastroenteritis and colitis, unspecified (principal); E86.0 Dehydration; L03.116 Cellulitis of left lower limb; I12.9 Hypertensive chronic kidney disease with stage 1 through stage 4 chronic kidney disease, or unspecified chronic kidney disease; E11.22 Type 2 diabetes mellitus with diabetic chronic kidney disease; E11.65 Type 2 diabetes mellitus with hyperglycemia; N18.3 Chronic kidney disease, stage 3 (moderate); I25.10 Atherosclerotic heart disease of native coronary artery without angina pectoris; E78.5 Hyperlipidemia, unspecified; F31.9 Bipolar disorder, unspecified; E11.40 Type 2 diabetes mellitus with diabetic neuropathy, unspecified; G47.00 Insomnia, unspecified; N52.9 Male erectile dysfunction, unspecified; K21.9 Gastro-esophageal reflux disease without esophagitis; G89.29 Other chronic pain; Z87.891 Personal history of nicotine dependence; Z89.412 Acquired absence of left great toe; Z98.890 Other specified postprocedural states

== ENCOUNTER → 2016-12-19 | Outpatient (CLI) | payer MEDICAID ==
[~2016-12-19] MED LIST changes: +ASA CHILDREN'S81 MG PO; +ATORVASTATIN CA40 MG PO; +AUGMENTIN 875-1 EACH PO; +FENOFIBRATE145 MG PO; +LEVAQUIN DPS500 MG PO; +LOTENSIN10 MG PO; +MAALOX DPS30 ML PO; +NORCO 10-325 T1 EACH PO; +PROAIR RESPICL90 MCG IH; +TYLENOL DPS325 MG PO
== END | disposition home or self-care (01) ==
LOC: CARD 14:00
DX: R07.9 Chest pain, unspecified (principal); R55 Syncope and collapse; R42 Dizziness and giddiness